=== PATIENT | female | born 1935 | race Asian ===

== ENCOUNTER 2020-10-01 16:11 | Emergency (ER) | payer OTHER ==
[~2020-10-01] VITALS: Ht 157.5 cm; Wt 47.7 kg
[2020-10-01] MEDS ORDERED: OLAN5TAB40 PO (18:02)
[2020-10-01] MEDS ORDERED: MAGOX PO (18:02)
[2020-10-01] MEDS ORDERED: GABA-1181 PO (18:02)
[2020-10-01] MEDS ORDERED: ALLO-44 PO (18:02)
[2020-10-01] MEDS ORDERED: CETI-450 PO (18:02)
[2020-10-01 19:00] VITALS: BP 124/74
== END 2020-10-01 21:00 | disposition home or self-care (01) ==
LOC: EMS 16:11
DX: R09.89 Other specified symptoms and signs involving the circulatory and respiratory systems (principal)
CPT/HCPCS: 71045-TC

== ENCOUNTER 2020-10-22 15:04 | Emergency (ER) | payer OTHER ==
[~2020-10-22] VITALS: Ht 154.9 cm; Wt 49.1 kg
[~2020-10-22 15:04] MED LIST: ALLO-44 PO; CETI-450 PO; GABA-1181 PO; MAGOX PO; OLAN5TAB40 PO
[2020-10-22] MEDS ORDERED: ACETAMINOPHEN 325 MG TABLET PO ONE (17:30)
[2020-10-22 18:45] VITALS: BP 125/70
== END 2020-10-22 19:27 | disposition home or self-care (01) ==
LOC: EMS 15:07
DX: S00.03XA Contusion of scalp, initial encounter (principal); M54.2 Cervicalgia; W19.XXXA Unspecified fall, initial encounter; Y93.89 Activity, other specified; Y92.098 Other place in other non-institutional residence as the place of occurrence of the external cause; Y99.8 Other external cause status
CPT/HCPCS: 70450; 72125

== ENCOUNTER 2020-10-26 14:05 | Emergency (ER) | payer OTHER ==
[~2020-10-26] VITALS: Ht 149.9 cm; Wt 59.1 kg
[2020-10-26] MEDS ORDERED: MINERAL OIL/PETROLATUM 120 GM CREAM TP ONE (15:30)
[2020-10-26] MEDS ORDERED: HYDROCORTISONE 1% 30 GM CREAM TP ONE (15:30)
[2020-10-26 18:35] VITALS: BP 145/54
== END 2020-10-26 19:05 | disposition home or self-care (01) ==
LOC: EMS 14:14
DX: L30.9 Dermatitis, unspecified (principal); Z79.899 Other long term (current) drug therapy

== ENCOUNTER 2021-03-20 13:35 | Emergency (ER) | payer MEDICARE, OTHER ==
[~2021-03-20] VITALS: Ht 154.9 cm; Wt 53.6 kg
[~2021-03-20 13:35] MED LIST changes: -ALLO-44 PO; +ALLO100T2 PO; +MAGN400T7 PO; -MAGOX PO
[2021-03-20] MEDS ORDERED: AMLO2.5T96 PO (14:03)
[2021-03-20] MEDS ORDERED: ASPI-1450 PO (14:03)
[2021-03-20 15:14] LABS: BASOPHILS % (AUTO) 1.2 % (0.0-2.0); COVID AG,FIA SOURCE NASOPHARYNGEAL; EOSINOPHILS % (AUTO) 4.7 % (1.0-6.0); HEMATOCRIT 36.4 % (36-46); HEMOGLOBIN 11.8 g/dL (12.0-16.0); LYMPHOCYTES % (AUTO) 18.3 % (22.0-44.0); MEAN CORPUSCULAR HEMOGLOBIN 29.1 pg (26.0-34.0); MEAN CORPUSCULAR HGB CONC 32.3 G/dL (31.0-37.0); MEAN CORPUSCULAR VOLUME 90 fL (80-100); MONOCYTES # (AUTO) 0.5 K/uL (0.1-1.0); MONOCYTES % (AUTO) 8.6 % (2.0-9.0); NEUTROPHILS # (AUTO) 3.8 K/uL (1.8-7.7); NEUTROPHILS % (AUTO) 67.2 % (40.0-70.0); PLATELET COUNT (AUTO) 180 K/uL (150-450); RED BLOOD CELL COUNT(AUTO) 4.05 MIL/uL (4.00-5.20); RED CELL DISTRIBUTION WIDTH 13.4 % (11.5-14.5)
[2021-03-20 15:20] LABS: ANION GAP 8 mmol/L (8-16); CALCIUM, TOTAL 8.8 mg/dL (8.8-10.5); CARBON DIOXIDE 28 mmol/L (22-29); CHLORIDE 105 mmol/L (98-107); CREATININE 0.86 mg/dL (0.60-1.30); GLUCOSE,RANDOM 107 mg/dL (70-110); POTASSIUM 4.3 mmol/L (3.5-5.1); SODIUM SERUM 141 mmol/L (136-145); UREA NITROGEN, BLOOD 28 mg/dL (7-18)
[2021-03-20 15:22] LABS: GLOMERULAR FILTR. RATE CALC > 60 mL/min (>60)
[2021-03-20 15:27] LABS: ALANINE AMINOTRANSFERASE 20 U/L (12-78); ALBUMIN 3.6 g/dL (3.4-5.0); ALKALINE PHOSPHATASE 61 U/L (46-116); ASPARTATE AMINOTRANSFERASE 15 U/L (15-37); BILIRUBIN,TOTAL 0.2 mg/dL (0.1-1.0); TOTAL PROTEIN, SERUM 7.4 g/dL (6.4-8.2)
[2021-03-20 15:35] LABS: B-TYPE NATRIURETIC PEPTIDE 17 pg/mL (0-100)
[2021-03-20 18:20] VITALS: BP 134/78
== END 2021-03-20 18:45 | disposition home or self-care (01) ==
LOC: EMS 13:35
DX: R06.02 Shortness of breath (principal); F41.9 Anxiety disorder, unspecified; F03.90 Unspecified dementia, unspecified severity, without behavioral disturbance, psychotic disturbance, mood disturbance, and anxiety; I10 Essential (primary) hypertension; Z20.822 Contact with and (suspected) exposure to COVID-19; Z79.82 Long term (current) use of aspirin
CPT/HCPCS: 71045; 80053; 83880; 84484; 85025; 87426; 93005; 99285; 36415-L1; 36415-TC